=== PATIENT | male | born 2000 | race Caucasian/White ===

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

== ENCOUNTER → 2018-06-26 | Emergency (ER) | payer OTHER ==
[~2018-06-26] VITALS: Wt 64.5 kg
[~2018-06-26] MED LIST changes: +IBUP-1541 PO; +IBUP-1542 PO; -IBUP400T22 PO
[2018-06-26 12:26] VITALS: BP 120/61; PULSE 65; RESP 18
--- NOTE | 2018-06-26 13:55 | ERD ---
ER Documentation Chief Complaint Chief Complaint mid-AP since yesterday: feels like 'muscle pulled'. denies NVD HPI 18-year-old male with no reported past medical surgical history who presents with complaint epigastric abdominal discomfort. Patient states he feels like he pulled a muscle in the abdomen. Pain made worse with movement, coughing, laughing. 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 Saw his PMD back in February and had an ultrasound which was negative. He otherwise denies fevers, chills, nausea, vomiting, diarrhea, urinary symptoms, testicular pain, radiation of pain. Time examination patient is nontoxic-appearing with reassuring examination. ROS All systems reviewed and are negative except as per history of present illness. Medications Home Meds Active Scripts Ibuprofen* (Motrin*) 600 Mg Tab, 600 MG PO Q6H PRN for PAIN AND OR ELEVATED TEMP, #30 TAB Prov:DELFIN BUSH PA-C 06/26/18 Ibuprofen* (Motrin*) 600 Mg Tab, 600 MG PO Q8, #30 TAB Prov:SANDRA STEVENSON 02/21/17 Amoxicillin/Potassium Clav (Amox-Clav 875-125 mg Tablet) 875-125 mg Tab, 1 TAB PO BID, #10 TAB Prov:MECHOSOEMETERIO A 12/04/15 Ibuprofen* (Ibuprofen*) 400 Mg Tablet, 400 MG PO Q6H PRN for PAIN OR TEMP ABOVE 38C for 28 Days, #60 TAB Prov:MECHOSO,EMETERIO A 12/04/15 Allergies Allergies: Coded Allergies: No Known Allergy (Unverified , 12/01/15) PMhx/Soc Medical and Surgical Hx: pt denies Medical Hx, pt denies Surgical Hx History of Surgery: No Anesthesia Reaction: No Hx Neurological Disorder: No Hx Respiratory Disorders: No Hx Cardiac Disorders: No Hx Psychiatric Problems: No Hx Miscellaneous Medical Probl: No Hx Alcohol Use: No Hx Substance Use: No Hx Tobacco Use: No FmHx Family History: No diabetes, No coronary disease, No other Physical Exam Vitals Vital Signs Date Temp Pulse Resp B/P (MAP) Pulse Ox O2 O2 Flow FiO2 Time Delivery Rate 06/26/18 97.9 65 18 120/61 100 12:26 (80) Physical Exam I have reviewed the triage vital signs. Const: Well nourished, well developed, appears stated age Eyes: PERRL, no conjunctival injection HENT: NCAT, Neck supple without meningismus CV: RRR, Warm, well-perfused extremities RESP: CTAB, Unlabored respiratory effort GI: soft, non-distended, no masses, no rebound or guarding, positive carnett sign to single point in epigastrium MSK: No gross deformities appreciated Skin: Warm, dry. No rashes Neuro: grossly non focal Psych: Appropriate mood and affect. Procedures/MDM 18-year-old male who presents with abdominal wall pain. Symptoms seem chronic in nature probably are musculoskeletal in nature given exam and history. He likely has an abdominal wall strain which would likely take some time to heal. I have low suspicion for acute abdominal pathology warranting emergent medical care. Patient is discharged with follow-up with PMD. Appropriate NSAID pain medications. ED course: Ultrasound of abdomen without acute finding DISPOSITION PLAN: We discussed follow up with the patient's primary care doctor within 24 to 48 hours. Patient counseled regarding my diagnostic impression and care plan. Prior to discharge all questions answered. Pt agrees with treatment plan and understands strict return precautions. Precautionary instructions provided including instructions to return to the ER if not improving or for any worsening or changing symptoms or concerns. Disclaimer: Inadvertent spelling and grammatical errors are likely due to EHR/dictation software use and do not reflect on the overall quality of patient care. Also, please note that the electronic time recorded on this note does not necessarily reflect the actual time of the patient encounter. Departure Diagnosis: Primary Impression: Abdominal wall pain Condition: Stable Patient Instructions: Muscle Strain, Abdomen Additional Instructions: Call your primary care doctor TOMORROW for an appointment during the next 2-3 days.See the doctor sooner or return here if your condition worsens before your appointment time. DELFIN BUSH PA-C June 26, 2018 13:55
== END | disposition home or self-care (01) ==
LOC: FTE 12:13
DX: R10.13 Epigastric pain (principal)
CPT/HCPCS: 76705; Z7502